=== PATIENT | male | born 1955 | race Caucasian/White ===

== ENCOUNTER 2016-11-14 04:12 | Emergency (ER) | payer OTHER ==
[~2016-11-14] VITALS: Ht 177.8 cm; Wt 99.5 kg
[2016-11-14] MEDS ORDERED: HALDOL5 MG PO (04:29)
[2016-11-14] MEDS ORDERED: COGENTIN1 MG PO (04:29)
[2016-11-14] MEDS ORDERED: PROZAC10 MG PO (04:30)
[2016-11-14] MEDS ORDERED: TYLENOL REGULA325 MG PO (04:31)
[2016-11-14] MEDS ORDERED: NEURONTIN800 MG PO (04:32)
[2016-11-14] MEDS ORDERED: DILANTIN100 MG PO (04:32)
[2016-11-14 05:16] LABS: HEMATOCRIT 48.7 % (38.0-50.0); MCH 30.2 PG (29.0-34.0); MCHC 34.9 G/DL (30.0-36.0); MCV 86.5 FL (86-99); PLATELET COUNT 170 K/uL (156-360); RBC DIS.WIDTH-CV 13.9 % (11.8-14.6); RBC DIS.WIDTH-SD 42.8 % (39-53); RED BLOOD COUNT 5.63 M/uL (4.00-5.50); WHITE BLOOD COUNT 4.9 K/uL (4.1-10.2)
[2016-11-14 05:24] LABS: CHLORIDE 102 mEq/L (99-109); POTASSIUM 4.4 mEq/L (3.7-5.4); SODIUM 139 mEq/L (136-147)
[2016-11-14 05:26] LABS: GLUCOSE 86 mg/dL (70-99)
[2016-11-14 05:27] LABS: ANION GAP 9 MEQ/L (2-14)
[2016-11-14 05:29] LABS: GFR ESTIMATE (CALCULATED) > 59 mL/min/
[2016-11-14 05:30] LABS: UREA NITROGEN (BUN) 14 mg/dL (9-23)
[2016-11-14 07:46] VITALS: BP 141/76
== END 2016-11-14 07:52 | disposition short-term general hospital (02) ==
LOC: EDBD 04:12 → EME 04:12
PROVIDERS: Emergency Medicine
DX: I63.9 Cerebral infarction, unspecified (principal); Z87.891 Personal history of nicotine dependence; Z88.0 Allergy status to penicillin
CPT/HCPCS: 70450; 80048; 85027; 99281; 99285